=== PATIENT | male | born 1965 | race Two or more races ===

== ENCOUNTER 2024-05-01 08:22 | Outpatient (CLI) | payer OTHER | END 2024-05-01 08:23 | disposition home or self-care (01) | LOC: NUCLEAR 08:22 | DX: I27.82 Chronic pulmonary embolism (principal); I26.90 Septic pulmonary embolism without acute cor pulmonale | CPT/HCPCS: 78582; A9540; A9567 ==

== ENCOUNTER 2024-07-26 21:21 | Emergency (ER) | payer OTHER ==
[~2024-07-26] VITALS: Ht 203.2 cm; Wt 113.4 kg
[2024-07-26] MEDS ORDERED: KEPPRA XR750 MG PO (21:49)
[2024-07-26] MEDS ORDERED: ALPHAGAN P5 M2 OP (21:50)
[2024-07-26] MEDS ORDERED: MONTELUKAST SOD10 MG PO (21:50)
[2024-07-26] MEDS ORDERED: DILANTIN100 MG PO (21:50)
[2024-07-26] MEDS ORDERED: LOSARTAN POTAS100 MG PO (21:50)
[2024-07-26] MEDS ORDERED: LORATADINE10 MG PO (21:51)
[2024-07-27] MEDS ORDERED: 0.9 % SODIUM CHLORIDE 1,000 ML IV STA (01:51)
[2024-07-27] MEDS ORDERED: LevETIRAcetam 500 MG/5 ML VIAL IV STA (01:54)
[2024-07-27] MEDS ORDERED: LevETIRAcetam 500 MG/5 ML VIAL IV ONE (02:06)
[2024-07-27 04:29] LABS: INR 1.16; PARTIAL THROMBOPLASTIN TIME 29.2 SECONDS (22.0-34.0); PROTHROMBIN TIME 12.5 SECONDS (9.0-11.5)
[2024-07-27 04:31] LABS: BASO % 0.2 % (0.1-1.2); EOS # 0.05 (0.04-0.54); EOS % 0.2 % (0.7-7.0); HEMATOCRIT 41.7 % (40.1-51.0); LYMPH # 1.33 (1.18-3.74); LYMPH % 5.5 % (19.3-53.1); MEAN CORPUSCULAR HEMOGLOBIN 27.3 pg (25.6-32.2); MONO # 1.45 (0.24-0.82); NEUT # 20.95 (1.56-6.13); NEUT % 87.3 % (34.0-71.1); PLATELET COUNT 178 K/uL (163-369); RED BLOOD COUNT 5.13 M/uL (4.63-6.08)
[2024-07-27 04:32] LABS: ALBUMIN 2.7 gm/dL (3.4-5.0); BILIRUBIN TOTAL 0.35 mg/dL (0.3-1.2); CALCIUM 8.9 mg/dL (8.5-10.1); CREATININE SERUM 1.02 mg/dL (0.70-1.30); GFR 75.28; GLOBULINA 4.8 G/DL (2.4-3.5); POTASSIUM 3.55 mEq/L (3.5-5.1); TOTAL PROTEIN 7.5 gm/dL (6.4-8.2)
[2024-07-27 04:49] LABS: ERYTHROCYTE SEDIMENTATION RATE 44 mm/hr (0-20)
[2024-07-27] MEDS ORDERED: PIPERACILLIN/TAZOBACTAM SODIUM 3.375 GM VIAL IV STA (05:39)
[2024-07-27] MEDS ORDERED: PIPERACILLIN/TAZOBACTAM SODIUM 3.375 GM VIAL IV ONE (05:46)
== END 2024-07-27 09:03 | disposition home or self-care (01) ==
LOC: ER 21:21
DX: R56.9 Unspecified convulsions (principal); L03.818 Cellulitis of other sites
CPT/HCPCS: 36415; 70450; 96365; 96366; 99284; J2543; J3490; J7030

== ENCOUNTER 2024-08-03 09:22 | Inpatient (IN) | payer OTHER ==
[~2024-08-03] VITALS: Ht 205.7 cm; Wt 114.3 kg
[~2024-08-03 09:22] MED LIST: ALPHAGAN P5 M2 OP; DILANTIN100 MG PO; KEPPRA XR750 MG PO; LORATADINE10 MG PO; LOSARTAN POTAS100 MG PO; MONTELUKAST SOD10 MG PO
--- NOTE | 2024-08-03 10:24 | NUR ---
SE RECIBE PTE ALERTA, EN SILLA DE CHITO ACOMPANADO POR FAMILIAR. FAMILIAR REFIERE EDEMA EN PIE DERECHO HACE 1 SEMANA. AREA CALIENTE AL TACTO CON ERITEMA Y DOLOR AL TACTO. SE MIDEN S/V Y SE UBICA.
[2024-08-03] MEDS ORDERED: PIPERACILLIN/TAZOBACTAM SODIUM 3.375 GM VIAL IV ONE ×2 (11:00→13:36)
[2024-08-03] MEDS ORDERED: FAMOtidine 10 MG/ML (4ML VIAL) IV ONE (11:00)
--- NOTE | 2024-08-03 13:05 | NUR ---
SE ORINTA PTE SOBRE TRATAMIENTO MEDICO Y SE EJECUTA EN MEADE TOTALIDAD
[2024-08-03] MEDS ORDERED: FAMOTIDINE/PF 20 MG/2 ML VIAL ONE (13:36)
[2024-08-03] MEDS ORDERED: FAMOtidine 200mg/20ml VIAL ONE (13:36)
[2024-08-03 14:21] LABS: PH,URINE 7.5 (5.0-8.0); URINE APPEARANCE Clear; URINE BILIRRUBIN Negative (NEGATIVE); URINE BLOOD Negative; URINE COLOR Yellow; URINE GLUCOSE Negative (NEGATIVE); URINE KETONE Negative (NEGATIVE); URINE LEUKOCYTE Negative; URINE NITRATE Negative; URINE PROTEIN Negative (NEGATIVE); URINE UROBILINOGEN 0.2 E.U./dl
[2024-08-03 14:25] LABS: URINE BACTERIA 7.3 uL (0.0-1933)
[2024-08-03 14:35] LABS: URINE EPITHELIAL CELLS 0.6 uL (0.0-38.8); URINE RBC 0.8 uL (0.0-20.8); URINE WBC 0.3 uL (0.0-23.2)
[2024-08-03] MEDS ORDERED: ENOXAPARIN SODIUM 80 MG/0.8 ML SYRINGE SUBCUTANEO SCH (17:00)
[2024-08-03] MEDS ORDERED: ENOXAPARIN SODIUM 100 MG/ML SYRINGE SUBCUTANEO SCH (17:00)
[2024-08-03 17:05] LABS: BASO % 0.8 % (0.1-1.2); EOS # 0.07 (0.04-0.54); EOS % 1.1 % (0.7-7.0); HEMATOCRIT 43.9 % (40.1-51.0); HEMOGLOBIN 14.4 g/dL (13.7-17.5); LYMPH # 1.27 (1.18-3.74); LYMPH % 19.6 % (19.3-53.1); MEAN CORPUSCULAR HEMOGLOBIN 27.3 pg (25.6-32.2); MONO # 0.67 (0.24-0.82); MONO % 10.3 % (4.7-12.5); NEUT # 4.36 (1.56-6.13); NEUT % 67.3 % (34.0-71.1); PLATELET COUNT 264 K/uL (163-369); RED BLOOD COUNT 5.28 M/uL (4.63-6.08)
[2024-08-03 17:14] LABS: ERYTHROCYTE SEDIMENTATION RATE 11 mm/hr (0-20)
[2024-08-03 17:24] LABS: D DIMER 0.9 MG/L; INR 1.16; PARTIAL THROMBOPLASTIN TIME 26.9 SECONDS (22.0-34.0); PROTHROMBIN TIME 12.5 SECONDS (9.0-11.5)
[2024-08-03 18:00] LABS: BILIRUBIN TOTAL 0.17 mg/dL (0.3-1.2); CALCIUM 8.9 mg/dL (8.5-10.1); CREATININE SERUM 0.91 mg/dL (0.70-1.30); GFR 85.87; GLOBULINA 5.3 G/DL (2.4-3.5); POTASSIUM 3.8 mEq/L (3.5-5.1); TOTAL PROTEIN 8.3 gm/dL (6.4-8.2)
[2024-08-03 18:03] LABS: C-REACTIVE PROTEIN 3.53 MG/DL (0.00-0.29)
[2024-08-03] MEDS ORDERED: 0.9 % SODIUM CHLORIDE 1,000 ML IV SCH (18:30)
[2024-08-03] MEDS ORDERED: PHENYTOIN SODIUM EXTENDED 100 MG CAPSULE PO SCH (18:32)
[2024-08-03] MEDS ORDERED: LevETIRAcetam 500 MG TAB. PO SCH (18:32)
[2024-08-03] MEDS ORDERED: ACETAMINOPHEN 500 MG GEL..CAP PO PRN (18:45)
[2024-08-04 01:18] VITALS: BP 126/82; O2SAT 96
[2024-08-04 08:09] LABS: C-REACTIVE PROTEIN 3.21 MG/DL (0.00-0.29)
[2024-08-04] MEDS ORDERED: FAMOTIDINE/PF 20 MG in 0.9 % SODIUM CHLORIDE 8 ML IV PUSH SCH (09:00)
[2024-08-04] MEDS ORDERED: PANTOPRAZOLE SODIUM 40 MG TABLET.DR PO SCH (09:00)
[2024-08-04] MEDS ORDERED: LOSARTAN POTASSIUM 100 MG TABLET PO SCH (09:00)
[2024-08-04 09:51] VITALS: BP 117/71; O2SAT 98
[2024-08-04] MEDS ORDERED: MONTELUKAST SODIUM 10 MG TABLET PO SCH (17:00)
[2024-08-04 17:23] VITALS: BP 111/79; O2SAT 99
[2024-08-05 00:14] VITALS: BP 115/74; O2SAT 93
[2024-08-05 08:24] VITALS: BP 129/83
[2024-08-05 18:06] VITALS: BP 140/90
[2024-08-06 00:40] VITALS: BP 138/88; O2SAT 98
[2024-08-06 08:34] VITALS: BP 132/80; O2SAT 98
[2024-08-06 09:13] LABS: BASO % 0.3 % (0.1-1.2); EOS # 0.12 (0.04-0.54); EOS % 2.1 % (0.7-7.0); HEMATOCRIT 42.9 % (40.1-51.0); HEMOGLOBIN 14.1 g/dL (13.7-17.5); LYMPH % 20.5 % (19.3-53.1); MEAN CORPUSCULAR HEMOGLOBIN 27.7 pg (25.6-32.2); MONO # 0.51 (0.24-0.82); MONO % 8.7 % (4.7-12.5); NEUT # 3.96 (1.56-6.13); NEUT % 67.9 % (34.0-71.1); PLATELET COUNT 300 K/uL (163-369); RED BLOOD COUNT 5.09 M/uL (4.63-6.08)
[2024-08-06 09:54] LABS: ALBUMIN 2.7 gm/dL (3.4-5.0); BILIRUBIN TOTAL 0.41 mg/dL (0.3-1.2); CALCIUM 8.7 mg/dL (8.5-10.1); CREATININE SERUM 0.79 mg/dL (0.70-1.30); GFR 101.09; GLOBULINA 4.9 G/DL (2.4-3.5); POTASSIUM 3.94 mEq/L (3.5-5.1); TOTAL PROTEIN 7.6 gm/dL (6.4-8.2)
[2024-08-06] MEDS ORDERED: LORATADINE 10 MG TABLET PO SCH (11:32)
[2024-08-06 13:08] LABS: a:g ratio 0.7 (0.7-1.7); alpha 1 g 0.2 g/dL (0.0-0.4); alpha 2 0.6 g/dL (0.4-1.0); beta g 0.9 g/dL (0.7-1.3); gamma g 2.5 g/dL (0.4-1.8); globulin t 4.2 g/dL (2.2-3.9); m spike 0.9 g/dL (Not Observed); prot total 7.2 g/dL (6.0-8.5)
[2024-08-06 15:12] LABS: kappa lambda r 0.54 (0.26-1.65); lambda light 85.4 mg/L (5.7-26.3)
[2024-08-06] MEDS ORDERED: ALPHAGAN P 0.1% OP SCH (17:00)
[2024-08-06] MEDS ORDERED: KEPPRA PO SCH (21:00)
[2024-08-06] MEDS ORDERED: DILANTIN PO SCH (21:00)
[2024-08-06] MEDS ORDERED: PHENYTOIN SODIUM EXTENDED 100 MG CAPSULE PO SCH (21:00)
[2024-08-07 00:18] VITALS: BP 124/85; O2SAT 97
[2024-08-07 08:17] VITALS: BP 103/62; O2SAT 94
[2024-08-07 09:08] LABS: HOMOCYSTEINE 6.6 umol/L (0.0-14.5)
[2024-08-07 17:08] VITALS: BP 157/84
[2024-08-08 01:36] VITALS: BP 103/57
[2024-08-08 07:11] LABS: BETA-2-MICROGLOBULINA 1.9 mg/L (0.6-2.4)
[2024-08-08 09:04] VITALS: BP 120/68; O2SAT 99
== END 2024-08-08 13:54 | disposition home or self-care (01) | DRG 301 ==
LOC: ER 09:27 → MEDJ 18:48
PROVIDERS: General Practice; Internal Medicine Hematology & Oncology; Radiology Vascular & Interventional Radiology; ADMIT Internal Medicine; ATTEND Internal Medicine
PROC: B54BZZZ Ultrasonography of Right Lower Extremity Veins (ICD-10-PCS; 2024-08-03)
PROC: 06PY3DZ Removal of Intraluminal Device from Lower Vein, Percutaneous Approach (ICD-10-PCS; principal; 2024-08-06 21:45)
DX: I82.411 Acute embolism and thrombosis of right femoral vein (principal); I82.431 Acute embolism and thrombosis of right popliteal vein; I82.451 Acute embolism and thrombosis of right peroneal vein; I10 Essential (primary) hypertension; J44.9 Chronic obstructive pulmonary disease, unspecified; G40.909 Epilepsy, unspecified, not intractable, without status epilepticus

== ENCOUNTER 2025-02-14 17:58 | Inpatient (IN) | payer OTHER ==
[~2025-02-14] VITALS: Ht 182.9 cm; Wt 90.7 kg
--- NOTE | 2025-02-14 18:17 | NUR ---
SE RECIBE PTE ALERTA Y ORIENTADO EN PERSONA JUNTO A HERMANA. LA MISMA REFIERE QUE DORCAS AL PTE POR CELLULITIS EN PIERNA DERECHA. SE OBSERVA ENROJECIDA Y CALIENTE AL TACTO. SE MIDE SV Y SE UBICA
[2025-02-14] MEDS ORDERED: ENOXAPARIN SODIUM 30 MG/0.3 ML SYRINGE SUBCUTANEO STA (18:56)
[2025-02-14] MEDS ORDERED: CEFTRIAXONE SODIUM 2,000 MG VIAL IV STA (18:56)
[2025-02-14] MEDS ORDERED: 0.9 % SODIUM CHLORIDE 500 ML IV SCH (19:00)
[2025-02-14] MEDS ORDERED: ENOXAPARIN SODIUM 60 MG/0.6 ML SYRINGE SUBCUTANEO ONE (19:27)
[2025-02-14] MEDS ORDERED: CEFTRIAXONE SODIUM 2,000 MG VIAL ONE (19:27)
[2025-02-14] MEDS ORDERED: ENOXAPARIN SODIUM 40 MG/0.4 ML SYRINGE SUBCUTANEO ONE (19:38)
[2025-02-14 21:12] LABS: BASO % 0.5 % (0.1-1.2); EOS # 0.09 (0.04-0.54); EOS % 0.9 % (0.7-7.0); LYMPH # 1.20 (1.18-3.74); LYMPH % 12.0 % (19.3-53.1); MEAN PLATELET VOLUME 11.40 fl (9.4-12.4); MONO # 1.18 (0.24-0.82); MONO % 11.8 % (4.7-12.5); NEUT # 7.41 (1.56-6.13); NEUT % 74.5 % (34.0-71.1); RED CELL DISTRIBUTION WIDTH 13.7 % (11.6-14.4)
--- NOTE | 2025-02-14 21:44 | NUR ---
PTE EVALUADO POR LA DRA. MORRIS. SE ORINETA SOBRE TRATAMIENTO, VERBALZIA ENTENDER. SE CANALIZA, COLECT AMUESTRAS DE LAB Y SE ADMINISTRA MEDICAMENTO DAVID ORDEN MEDICA BAJO MEIDDAS ASEPTICAS. SE NOTIFICA CT.
[2025-02-14 22:01] LABS: URINE APPEARANCE Clear; URINE BILIRRUBIN Negative (NEGATIVE); URINE BLOOD Negative; URINE COLOR Yellow; URINE GLUCOSE Negative (NEGATIVE); URINE KETONE Negative (NEGATIVE); URINE LEUKOCYTE Negative; URINE NITRATE Negative; URINE PROTEIN Negative (NEGATIVE); URINE UROBILINOGEN 0.2 E.U./dl
[2025-02-14 22:02] LABS: BUN CREA RATIO 17.0 (7.0-25.0); CREATININE SERUM 0.82 mg/dL (0.70-1.30); GFR 96.5; GLUCOSE FASTING 106.0 mg/dL (65-100); OSMOLALITY SERUM 280.0 MOSM/KG (275-295)
[2025-02-14 22:05] LABS: URINE BACTERIA 22.8 uL (0.0-1933); URINE RBC 17.1 uL (0.0-20.8)
[2025-02-14 22:13] LABS: COVID-19 AG NEGATIVE (NEGATIVE)
[2025-02-14 22:15] LABS: URINE CAST 0.14 uL (0.0-1.40); URINE EPITHELIAL CELLS 1.3 uL (0.0-38.8); URINE WBC 0.6 uL (0.0-23.2)
[2025-02-14 22:39] LABS: D DIMER 0.21 MG/L
--- NOTE | 2025-02-14 23:00 | NUR ---
SE RECIBE MASCULINO ALERTA EN CAMA #13 CON BARANDAS ELEVADAS POR DU DEGURIDA Y AVILA DE ID. VENOPUNCION PATENTE DOLORES DE EDEMA Y ERITEMA BAJANDO IV FLUIDS POR REGULADOR. PENDIENTE A ESTUDIO, SE NOTIFICA. PENDIENTE A ESTUDIO EN LA MANANA.
--- NOTE | 2025-02-15 01:32 | NUR ---
SE OREINTA A PTE Y FAMILIAR SOBRE TX MEDICO ORDENADO. SE REALIZA FELICITAS DE MUESTRAS DE LAB DAVID ORDEN MEDICA Y BAJO MEDIDAS ASEPTICAS. PTE PENDIENTE A ESTUDIO EN LA MANANA.
[2025-02-15] MEDS ORDERED: ENOXAPARIN SODIUM 100 MG/ML SYRINGE SUBCUTANEO STA (19:20)
[2025-02-15] MEDS ORDERED: CEFTRIAXONE SODIUM 2,000 MG VIAL IV ONE (19:30)
[2025-02-15] MEDS ORDERED: RIVAROXABAN 15 MG TABLET PO SCH (20:18)
[2025-02-15] MEDS ORDERED: CEFTRIAXONE SODIUM 2,000 MG in 0.9 % SODIUM CHLORIDE 100 ML IV SCH (20:19)
[2025-02-15] MEDS ORDERED: LevETIRAcetam 500 MG TAB. PO SCH (20:20)
[2025-02-16 03:22] VITALS: BP 121/72; O2SAT 94
[2025-02-16 07:43] LABS: BASO % 0.6 % (0.1-1.2); EOS # 0.14 (0.04-0.54); EOS % 2.1 % (0.7-7.0); LYMPH # 1.36 (1.18-3.74); LYMPH % 20.8 % (19.3-53.1); MEAN PLATELET VOLUME 11.80 fl (9.4-12.4); MONO # 0.73 (0.24-0.82); MONO % 11.1 % (4.7-12.5); NEUT # 4.26 (1.56-6.13); NEUT % 65.1 % (34.0-71.1); RED CELL DISTRIBUTION WIDTH 14.0 % (11.6-14.4)
[2025-02-16 08:00] VITALS: BP 136/76; O2SAT 99
[2025-02-16 08:06] LABS: INR 1.16
[2025-02-16 08:16] LABS: BUN CREA RATIO 12.0 (7.0-25.0); CREATININE SERUM 0.73 mg/dL (0.70-1.30); GFR 110.35; GLUCOSE FASTING 102.0 mg/dL (65-100); OSMOLALITY SERUM 282.0 MOSM/KG (275-295)
[2025-02-16] MEDS ORDERED: LevETIRAcetam 500 MG TAB. PO SCH ×2 (09:00→21:00)
[2025-02-16] MEDS ORDERED: HYDROCHLOROTHIAZIDE 25 MG TABLET PO SCH (09:00)
[2025-02-16] MEDS ORDERED: FAMOTIDINE/PF 20 MG in 0.9 % SODIUM CHLORIDE 100 ML IV SCH (09:00)
[2025-02-16] MEDS ORDERED: LOSARTAN POTASSIUM 100 MG TABLET PO SCH (09:00)
[2025-02-16 19:10] VITALS: BP 121/73
[2025-02-16 19:21] VITALS: BP 144/83
[2025-02-16] MEDS ORDERED: PHENYTOIN SODIUM EXTENDED 100 MG CAPSULE PO SCH (21:00)
[2025-02-16] MEDS ORDERED: PATIENTS OWN MEDICATION (MEDICAMENTO EN PISO) PO SCH (21:00)
[2025-02-16] MEDS ORDERED: PHENYTOIN 50 MG TAB.CHEW PO SCH (21:00)
[2025-02-17 01:21] VITALS: BP 142/91; O2SAT 97
[2025-02-17 08:56] VITALS: BP 134/84; O2SAT 98
[2025-02-17] MEDS ORDERED: MONTELUKAST SODIUM 10 MG TABLET PO SCH (09:00)
[2025-02-17] MEDS ORDERED: LORATADINE 10 MG TABLET PO SCH (09:00)
[2025-02-17 18:42] VITALS: BP 150/85; O2SAT 97
== END 2025-02-17 18:45 | disposition home or self-care (01) | DRG 300 ==
LOC: ER 17:59 → MEDI 02-15 20:17
PROVIDERS: General Practice; ADMIT Student in an Organized Health Care Education/Training Program; ATTEND Student in an Organized Health Care Education/Training Program
PROC: BQ2RYZZ Computerized Tomography (CT Scan) of Right Lower Extremity using Other Contrast (ICD-10-PCS; principal; 2025-02-14)
PROC: B54DZZZ Ultrasonography of Bilateral Lower Extremity Veins (ICD-10-PCS; 2025-02-14)
DX: I82.491 Acute embolism and thrombosis of other specified deep vein of right lower extremity (principal); L03.115 Cellulitis of right lower limb; I10 Essential (primary) hypertension; Z79.01 Long term (current) use of anticoagulants